=== PATIENT | male | born 1950 | race Two or more races ===

== ENCOUNTER → 2022-09-25 | Outpatient (CLI) | payer OTHER ==
[~2022-09-25] MED LIST: NORVASC5 MG PO; TAMS0.4C PO; TRAMADOL HCL E100 MG PO; ZESTRIL20 MG PO
== END | disposition home or self-care (01) ==
LOC: TOM 14:46
PROVIDERS: ATTEND Orthopaedic Surgery
DX: S42.231A 3-part fracture of surgical neck of right humerus, initial encounter for closed fracture (principal)